=== PATIENT | male | born 1990 | race Caucasian/White ===

== ENCOUNTER 2020-08-04 16:35 | Outpatient (REF) | payer OTHER, SELFPAY ==
[2020-08-04 17:11] LABS: COVID-19 Test Negative (Negative)
== END 2020-08-04 16:36 | disposition home or self-care (01) ==
LOC: HO.LAB 16:35
PROVIDERS: Visit Provider Internal Medicine
DX: Z20.828 Contact with and (suspected) exposure to other viral communicable diseases (principal)
CPT/HCPCS: 87635

== ENCOUNTER 2021-09-16 11:08 | Outpatient (REF) | payer MEDICAID, SELFPAY ==
[2021-09-16 11:48] LABS: COVID-19 Test Negative (Negative)
== END 2021-09-16 11:09 | disposition home or self-care (01) ==
LOC: HO.LAB 11:08
PROVIDERS: PCP Nurse Practitioner Primary Care; Visit Provider Internal Medicine
DX: Z20.822 Contact with and (suspected) exposure to COVID-19 (principal)
CPT/HCPCS: 36415; 87635; C9803